=== PATIENT | female | born 1980 | race Caucasian/White ===

== ENCOUNTER 2020-09-29 10:18 | Outpatient (CLI) | payer BC, SELFPAY ==
--- NOTE | ~2020-09-29 | MM_ITS ---
EXAMINATION: MM screening [facility] BI w kalen HISTORY: Screening mammogram TECHNIQUE: Craniocaudal and mediolateral oblique 3-D tomosynthesis images were obtained and synthetic 2-D images were generated. CAD analysis was submitted and interpreted. COMPARISON: 09/28/2019, 09/21/2018, 09/19/2017 BREAST PARENCHYMAL COMPOSITION: The breasts are almost entirely fatty. FINDINGS: A stable intramammary lymph node is noted in the right breast. There is no evidence of susp icious mass, calcification, or architectural distortion to suggest malignancy in either breast. There has been no suspicious interval change. IMPRESSION: 1. No mammographic evidence of malignancy. 2. Recommend routine screening mammography in one year. BI-RADS Category 2: Benign finding(s). Reviewed, dictated and finalized at location A. NO BANKER
== END 2020-09-29 10:19 | disposition home or self-care (01) ==
LOC: ANHIMG 10:25
DX: Z12.31 Encounter for screening mammogram for malignant neoplasm of breast (principal)
CPT/HCPCS: 77063; 77067

== ENCOUNTER 2021-03-29 08:27 | Observation (INO) | payer BC, SELFPAY ==
--- NOTE | ~2021-03-29 | CT_ITS ---
EXAMINATION: CT abdomen pelvis w con DATE: 03/29/2021 10:43 INDICATION: Abdominal pain TECHNIQUE: Computed tomography (CT) of the abdomen and pelvis was performed with 100 cc Omnipaque 350 intravenous contrast. Automated exposure control and iterative reconstruction technique were employe d. Exam dose: 1053.70 mGy-cm total exam DLP. COMPARISON: 03/29/2021 Limited abdominal ultrasound examination; cholelithiasis and positive sonograph ic Villalobos's sign were noted FINDINGS: 4 mm middle lobe nodule (series 4 image 4). The lung bases are clear of infiltrate or consolidation. Normal heart size. No pericardial or pleural effusion. The liver, spleen, pancreas, left adrenal gland and kidneys are unremarkable. No urinary tract calcul us or hydroureteronephrosis. Approximately 19 x 24 mm low-attenuation right adrenal mass, likely an adrenal adenoma. The urinary bladder, uterus and adnexal areas are unremarkable. Normal caliber of the abdominal aorta. No intraperitoneal or retroperitoneal or pelvic mass lesion or adenopathy. There is minimal free fluid in the dependent pelvis. This likely physiologic. Minimal diverticulosis of the sigmoid colon; no CT evidence of diverticulitis. No bowel obstruction, bowel wall thickening, pneumatosis or intraperitoneal free air. No CT evidence of appendicitis is evident. Included skeletal structures are unremarkable. IMPRESSION: 19 x 24 mm probable right adrenal adenoma Minimal left colon diverticulosis; no CT evidence of diverticulitis Reviewed, dictated and finalized at Location [facility]. Reviewed, dictated and finalized at location A.
--- NOTE | ~2021-03-29 | US_ITS ---
US abdomen limited DATE: 03/29/2021 10:05 INDICATION: Right upper quadrant abdominal pain. Nausea and vomiting. TECHNIQUE: Real-time imaging of liver, pancreas, gallbladder COMPARISON: None FINDINGS: The pancreatic head, neck and proximal body are unremarkable. The distal body and tail are obscured by bowel gas. No hepatic space-occupying mass lesion is evident. There is fatty change of the liver. Normal hepatop edal portal venous flow direction. There are multiple shadowing small filling defects of the dependent aspect of the gallbladder consist ent with cholelithiasis. No gallbladder wall thickening. Positive sonographic Villalobos's sign. The common bile but measures 5.3 mm, within normal limits. IMPRESSION: Cholelithiasis Positive sonographic Villalobos's sign Reviewed, dictated and finalized at [facility]. Reviewed, dictated and finalized at location A.
[2021-03-29 08:29] VITALS: BP 130/63; PULSE 73; RESP 20; TEMP 36.9; O2SAT 100
--- NOTE | 2021-03-29 08:41 | ED.ABDPAIN ---
HPI - Abdominal Pain General Chief Complaint: Abdominal Pain Stated Complaint: ABD PAIN Time Seen by Provider: 03/29/21 08:30 Source: RN notes reviewed History of Present Illness HPI narrative: Patient presents to emergency department from home for abdominal pain. Patient states symptoms began approximately 2 AM this morning. Pain is located diffusely throughout the abdomen with increased pain in the right upper quadrant described as sharp and stabbing. States nothing makes the pain better or worse. Associated with nausea vomiting. Denies any fevers or chills, chest pain, shortness of breath diarrhea or any other symptoms. Tried taking Pepto-Bismol at home with no relief Related Data Allergies Allergy/AdvReac Type Severity Reaction Status Date / Time METOCLOPRAMIDE HCL Allergy Mild Swelling Uncoded 03/29/21 08:38 of Lip/Tongue/Throat PROCHLORPERAZINE EDISYLATE Allergy Mild Swelling Uncoded 03/29/21 08:38 of the Eye PROCHLORPERAZINE MALEATE Allergy Mild Swelling Uncoded 03/29/21 08:38 of Lip/Tongue/Throat PROMETHAZINE HCL Allergy Mild Swelling Uncoded 03/29/21 08:38 of the Eye Review of Systems Review of Systems: Narrative: Gen.: Denies fevers or chills ENT: Denies congestion Respiratory: Denies shortness of breath or cough CV: Denies chest pain or palpitations GI: See HPI denies burning, urgency, frequency or hematuria Musculoskeletal: Denies back pain or muscle pain Neuro: Denies numbness, tingling, weakness or focal weakness Skin: Denies rash Except as documented, all other systems reviewed and negative [facility] Past Medical History Medical History (Updated 03/29/21 @ 12:02 by Lorne Couch DO) Diverticulitis Social History Social History (Updated 03/29/21 @ 08:43 by Lorne Couch DO) Smoking status: Never smoker Gender identity (if verbalized by the patient): Female Exam Narrative: Exam Narrative: APPEARANCE: No acute distress, nontoxic, resting in bed HEENT: Normocephalic, atraumatic, OMM RESPIRATORY: No respiratory distress, clear to auscultation bilaterally with no rhonchi wheezing or rales CARDIOVASCULAR: RRR s murmur ABDOMINAL: Soft nondistended tender palpation diffusely throughout abdomen with increased tenderness in the right upper quadrant no rebound or guarding MUSCULOSKELETAl: Moves all extremities. No clubbing, cyanosis or edema. NEURO: Awake and alert. Following commands, speech normal, no focal deficits SKIN:: Warm, dry. Normal Color PSYCHIATRIC: Normal affect/mood Course Course Emergency Course: : Discussed with Dr. Barr presentation work-up discussed continued abdominal pain agrees with admission to his service at this time. Request patient started on cefotetan 2 g every 12 hours Discussed with patient and family results of workup and diagnosis. Discussed need for admission. Patient and family understand and agree to current treatment plan Vital Signs Vital signs: Vital Signs Temperature 98.5 F 03/29/21 08:29 Pulse Rate 73 03/29/21 08:29 Respiratory Rate 20 03/29/21 08:29 Blood Pressure 130/63 03/29/21 08:29 Pulse Oximetry 100 03/29/21 08:29 Temperature 98.5 F 03/29/21 08:29 Pulse Rate 73 03/29/21 08:29 Respiratory Rate 20 03/29/21 08:29 Blood Pressure 130/63 03/29/21 08:29 Pulse Oximetry 100 03/29/21 08:29 MDM - Abdominal Pain Lab Data Result diagrams: 03/29/21 08:49 03/29/21 08:49 Labs: Lab Results 03/29/21 03/29/21 03/29/21 Range/Units 08:49 08:49 08:49 WBC 8.0 (4.5-10.0) K/mm3 RBC 4.33 (4.2-5.4) M/mm3 Hgb 12.4 (12.0-15.0) g/dL Hct 38.6 (37.0-47.0) % MCV 89.1 (80-100) fl MCH 28.6 (26-34) pg MCHC 32.1 (32-36) g/dl RDW 13.9 (11.5-14.5) % Plt Count 309 (150-375) k/mm3 MPV 9.5 (7.4-10.4) fl Immature Gran % (Auto) 0.4 (0-0.5) % Neut % (Auto) 74.3 H (45.5-73.1) % Lymph % (Auto) 18.3 (18.3-44.2
[2021-03-29] MEDS: SODIUM CHLORIDE 0.9% IV 1,000 ML 999 ML IV CONT (08:49)
[2021-03-29] MEDS: KETOROLAC 30 MG/ML VIAL (*BKC) IV PUSH (08:49)
[2021-03-29] MEDS: ONDANSETRON INJ 4 MG/2 ML VIAL IV PUSH (08:51)
[2021-03-29 09:01] LABS: Basophils Percent Auto 0.4 % (0.2-1.2); Eosinophils Absolute Auto 0.1 K/mm3 (0-0.3); Eosinophils Percent Auto 0.6 % (0-4.4); Hematocrit 38.6 % (37.0-47.0); Hemoglobin 12.4 g/dL (12.0-15.0); Immature Granulocyte Absolute 0.03 K/mm3 (0.00-0.031); Immature Granulocyte Percent A 0.4 % (0-0.5); Lymphocytes Absolute Auto 1.46 K/mm3 (0.9-3.2); Lymphocytes Percent Auto 18.3 % (18.3-44.2); Mean Corpuscular HGB Conc 32.1 g/dl (32-36); Mean Corpuscular Hemoglobin 28.6 pg (26-34); Mean Corpuscular Volume 89.1 fl (80-100); Mean Platelet Volume 9.5 fl (7.4-10.4); Monocytes Absolute Auto 0.5 K/mm3 (0.1-0.6); Neutrophils Absolute Auto 5.9 K/mm3 (1.3-6.7); Neutrophils Percent Auto 74.3 % (45.5-73.1); Platelet Count Result 309 k/mm3 (150-375); Red Blood Count 4.33 M/mm3 (4.2-5.4); Red Cell Distribution Width 13.9 % (11.5-14.5)
[2021-03-29 09:10] LABS: Add Urine Microscopic? YES; Amorphous Sediment Urine Few; Appearance Urine Cloudy (Clear); Bacteria Urine Trace /hpf; Bilirubin Urine Negative (Negative); Blood Urine Negative (Negative); Color Urine Yellow (Yellow); Glucose Urine UA Negative (Negative); Ketones Urine Negative (Negative); Leukocyte Esterase Ur Negative LEU/UL (Negative); Mucus Urine Rare /lpf; Nitrate Urine Negative (Negative); Protein Urine 2+ mg/dL (Negative); RBC Urine 0-2 /hpf (0-2); Specific Grav Ur 1.023 (1.001-1.035); Squamous Epithelial Cell Urine Occasional /hpf (Few); Urobilinogen Urine Negative mg/dL (<2.0); WBC Urine 0-3 /hpf
[2021-03-29 09:11] LABS: Alanine Aminotransferase 27 U/L (4-35); Albumin Level 4.6 g/dL (3.5-5.1); Alkaline Phosphatase 79 U/L (38-126); Anion Gap 4 mmol/L (8-16); Aspartate Amino Transferase 34 U/L (14-36); Bilirubin,Total 0.2 mg/dL (0.2-1.3); Blood Urea Nitrogen 15 mg/dL (7-17); Carbon Dioxide 29 mmol/L (22-30); Chloride 105 mmol/L (98-107); Estimated CRCL calculation 102 ml/min; Estimated Glomerular Filt Rate > 60; Glucose 110 mg/dL (65-105); Lipase 84 U/L (23-300); Potassium 4.5 mmol/L (3.4-5.0); Sodium 138 mmol/L (137-145)
[2021-03-29 10:25] VITALS: BP 136/87; PULSE 69; RESP 19; O2SAT 100
[2021-03-29] MEDS: MORPHINE SULFATE (*CRX) 4 MG/ML INJ IV PUSH (10:26)
[2021-03-29 12:00] VITALS: BP 126/78; PULSE 75; RESP 18; O2SAT 100
[2021-03-29] MEDS: cefoTEtan DISODIUM INJ 2 GM in DEXTROSE 5% IN WATER 50 ML IVPB ×2 (12:15→19:38)
--- NOTE | 2021-03-29 12:27 | PC.NURSE ---
Dextrose was pulled in error. Dextrose was not given to pt.
--- NOTE | 2021-03-29 14:25 | ADMGEN ---
This patient, Saida Justin, was admitted to Medical Room 261-01. Patient/family oriented to hospital policies and general routines including ID bracelet, bed and alarms, visiting hours, pain management, procedures, bathroom and other care routines, personal items, smoking policy, room service/diet, and visiting hours. Information on how to activate the Rapid Response Team has been discussed. Patient/Family are encouraged to report perceived risks to care and to ask questions if they do not understand what they are told or what they should do.
[2021-03-29] MEDS: SODIUM CHLORIDE 0.9% IV 1,000 ML 125 ML IV CONT ×2 (14:28→22:08)
[2021-03-29 14:40] VITALS: BP 119/63; PULSE 75; RESP 16; TEMP 36.7; O2SAT 100
[2021-03-29] MEDS: ACETAMINOPHEN 325 MG TABLET 650 MG PO (14:51)
[2021-03-29 14:58] VITALS: BMI 32.2
--- NOTE | 2021-03-29 17:16 | PM.IMHP ---
H&P: HPI History of Present Illness Date/Time: 03/29/21 17:16 this is a pleasant 40-year-old white female patient who presented to the emergency department from home for abdominal pain. Patient states symptoms began approximately 2 AM this morning. Pain is located diffusely throughout the abdomen with increased pain in the right upper quadrant described as sharp and stabbing. patient states that she was feeling okay S her day in the morning afternoon but had a little queasiness in her stomach. She then had cheeseburger and some noodles for supper went to bed feeling all right but awoke at 2:00 a.m. with sharp upper abdominal pain above the level of the umbilicus. She did get any better so came to the emergency room at 8:00 a.m. this morning. States nothing makes the pain better or worse. Associated with nausea vomiting. Denies any fevers or chills, chest pain, shortness of breath diarrhea or any other symptoms. Tried taking Pepto-Bismol at home with no relief. Took some Tylenol yesterday with mild relief. Workup in the emergency room by Dr. chang revealed an ultrasound that showed small filling defects consistent with gallstones in the gallbladder and a definite Villalobos sign on ultrasound. CT scan was checked to be sure there was not something else in the biliary ducts looked normal. Her lipase is normal there was no obvious problem with the pancreas on CT scan and therefore is felt that she most likely has acute cholecystitis related to gallstones. She is admitted this time for IV antibiotics IV fluid hydration. Will discuss possible laparoscopic cholecystectomy for her in the near future since she has within the 72 hour window at which time it is likely that we would be successful to accomplish this for her. Chief Complaint: Acute upper abdominal pain Review of Systems Constitutional: Constitutional: Reports as per HPI and Denies headache(s) Eyes: Eyes: Denies loss of vision and Denies eye pain ENT: Reports Normal hearing present, Denies change in voice, Denies dizziness and Denies headache(s) Cardiovascular: Cardiovascular: Denies chest pain and Denies dyspnea Respiratory: Respiratory: Denies dyspnea and Denies wheezing Gastrointestinal: Gastrointestinal: Reports abdominal pain ( Many upper abdomen and more to the right than left.), Reports GI cramping and Reports early satiety Comments: patient lytes 2 previous episodes of the pain lasted about 12 hours. She can't remember what she had to eat before though started. Genitourinary: Genitourinary: Reports no additional female genitourinary complaints Comments: Patient did have about 9 years ago. She did have a Pfannenstiel type incision and has had no recent problems gynecologically. Musculoskeletal: Musculoskeletal: Denies back pain and Denies arthralgias Neurologic: Reports Normal hearing present, Denies dizziness, Denies headache(s), Denies loss of vision and Denies memory loss Psychiatric: Psychiatric: Denies memory loss and Denies panic attacks Endocrine: Endocrine: Reports no additional endocrine complaints Hematologic/Lymphatic: Hematologic/Lymphatic: Reports no additional hematologic/lymphatic complaints Allergic/Immunologic: Allergic/Immunologic: Denies wheezing PMFSH Past Medical History Medical History (Updated 03/29/21 @ 17:29 by Yordan Barr MD) Diverticulitis Diverticulosis large intestine w/o perforation or abscess w/o bleeding Obesity (BMI 30.0-34.9) Surgical History Surgical History (Updated 03/29/21 @ 17:21 by Yordan Barr MD) History of Social History Social History Smoking status: Never smoker Alcohol intake: current Drinks per week: 3 Substance use: never Gender identity (if verbalized by the patient): Female Spiritual care concerns: No Meds Home Medications and Allergies Home Medications Medication Instructions Recorded
--- NOTE | 2021-03-29 17:46 | WPDANESEPP ---
Anes - Eval Pre Procedure Procedure: Laparoscopic Cholecystectomy w/ IOC Date/Time: 03/30/21 14:30 Surgeon: Momo Preop Diagnosis: Acute Cholecystitis Pre Op Diagnosis: Cholecystitis Patient Data Age: 40 Gender: F Height: 1.78 m Weight: 102 kg Last Vital Signs Temp 36.7 C 03/29/21 14:40 Pulse 75 03/29/21 14:40 Resp 16 03/29/21 14:40 BP 119/63 03/29/21 14:40 Pulse Ox 100 03/29/21 14:40 Allergies Allergy/AdvReac Type Severity Reaction Status Date / Time METOCLOPRAMIDE HCL Allergy Mild Swelling Uncoded 03/29/21 14:35 of Lip/Tongue/Throat PROCHLORPERAZINE EDISYLATE Allergy Mild Swelling Uncoded 03/29/21 14:35 of Lip/Tongue/Throat PROCHLORPERAZINE MALEATE Allergy Mild Swelling Uncoded 03/29/21 14:35 of Lip/Tongue/Throat PROMETHAZINE HCL Allergy Mild Swelling Uncoded 03/29/21 14:35 of Lip/Tongue/Throat Home Medications Medication Instructions Recorded Confirmed Type bupropion HCl 150 mg PO DAILY 03/29/21 03/29/21 History ergocalciferol (vitamin D2) 250 mcg PO DAILY 03/29/21 03/29/21 History levothyroxine 175 mcg PO DAILY 03/29/21 03/29/21 History lorazepam 1 mg PO HS PRN 03/29/21 03/29/21 History omeprazole 40 mg PO DAILY 03/29/21 03/29/21 History phentermine 30 mg PO DAILY 03/29/21 03/29/21 History sertraline 100 mg PO DAILY 03/29/21 03/29/21 History vitamin B complex [B 1 tablet PO DAILY 03/29/21 03/29/21 History Complex-Vitamin B12] zolpidem 5 mg PO HS PRN 03/29/21 03/29/21 History Laboratory Tests 03/29/21 03/29/21 03/29/21 08:49 08:49 08:49 WBC 8.0 K/mm3 K/mm3 (4.5-10.0) RBC 4.33 M/mm3 M/mm3 (4.2-5.4) Hgb 12.4 g/dL g/dL (12.0-15.0) Hct 38.6 % % (37.0-47.0) MCV 89.1 fl fl (80-100) MCH 28.6 pg pg (26-34) MCHC 32.1 g/dl g/dl (32-36) RDW 13.9 % % (11.5-14.5) Plt Count 309 k/mm3 k/mm3 (150-375) MPV 9.5 fl fl (7.4-10.4) Immature Gran % (Auto) 0.4 % % (0-0.5) Neut % (Auto) 74.3 % H % (45.5-73.1) Lymph % (Auto) 18.3 % % (18.3-44.2) [place] % (Auto) 6.0 % % (2.6-8.5) Eos % (Auto) 0.6 % % (0-4.4) Baso % (Auto) 0.4 % % (0.2-1.2) Lymph # (Auto) 1.46 K/mm3 K/mm3 (0.9-3.2) [place] # (Auto) 0.5 K/mm3 K/mm3 (0.1-0.6) Eos # (Auto) 0.1 K/mm3 K/mm3 (0-0.3) Baso # (Auto) 0.0 K/mm3 K/mm3 (0.0-0.1) Abs Immat Gran (auto) 0.03 K/mm3 K/mm3 (0.00-0.031) Absolute Neuts (auto) 5.9 K/mm3 K/mm3 (1.3-6.7) Absolute Nucleated RBC 0.0 K/mm3 K/mm3 (0.0-0.012) Nucleated RBC % 0.0 % % (0.0-0.2) Sodium 138 mmol/L mmol/L (137-145) Potassium 4.5 mmol/L mmol/L (3.4-5.0) Chloride 105 mmol/L mmol/L (98-107) Carbon Dioxide 29 mmol/L mmol/L (22-30) Anion Gap 4 mmol/L L mmol/L (8-16) BUN 15 mg/dL mg/dL (7-17) Creatinine 0.80 mg/dL mg/dL (0.7-1.0) Estim Creat Clear Calc 102 ml/min ml/min Estimated GFR > 60 (59 - ) Glucose 110 mg/dL H mg/dL (65-105) Calcium 10.0 mg/dL mg/dL (8.4-10.2) Total Bilirubin 0.2 mg/dL mg/dL (0.2-1.3) AST 34 U/L U/L (14-36) ALT 27 U/L U/L (4-35) Alkaline Phosphatase 79 U/L U/L (38-126) Total Protein 8.0 g/dL g/dL (6.3-8.2) Albumin 4.6 g/dL g/dL (3.5-5.1) Lipase 84 U/L U/L (23-300) Urine Color Yellow (Yellow) Urine Appearance Cloudy H (Clear) Urine pH 8.0 (5.0-9.0) Ur Specific [place] 1.023 (1.001-1.035) Urine Protein 2+ mg/dL H mg/dL (Negative) Urine Glucose (UA) Negative mg/dL mg/dL (Negative) Urine Ketones Negative mg/dL mg/dL (Negative) Ur Blood (Man) Negative (Negative) U
[2021-03-29] MEDS: FAMOTIDINE 20 MG/2 ML VIAL IV PUSH (19:37)
[2021-03-29] MEDS: HYDROcodone/acetaminophen (*CRX) 5-325 MG TABLET 1 TAB PO (19:37)
[2021-03-29 20:00] VITALS: PULSE 75; RESP 16; O2SAT 100
[2021-03-29 21:00] VITALS: BP 112/68; PULSE 67; RESP 16; TEMP 36; O2SAT 98
[2021-03-30] VITALS (19 sets, daily range): BP systolic 112–137; BP diastolic 54–80; PULSE 71–87; RESP 14–20; TEMP 35.9–36.9; O2SAT 96–100
[2021-03-30 05:48] LABS: Basophils Percent Auto 0.4 % (0.2-1.2); Eosinophils Absolute Auto 0.1 K/mm3 (0-0.3); Eosinophils Percent Auto 2.5 % (0-4.4); Hematocrit 33.2 % (37.0-47.0); Hemoglobin 10.5 g/dL (12.0-15.0); Immature Granulocyte Absolute 0.02 K/mm3 (0.00-0.031); Immature Granulocyte Percent A 0.4 % (0-0.5); Lymphocytes Percent Auto 29.4 % (18.3-44.2); Mean Corpuscular HGB Conc 31.6 g/dl (32-36); Mean Corpuscular Volume 88.5 fl (80-100); Mean Platelet Volume 9.6 fl (7.4-10.4); Monocytes Absolute Auto 0.4 K/mm3 (0.1-0.6); Monocytes Percent Auto 8.6 % (2.6-8.5); Neutrophils Absolute Auto 2.8 K/mm3 (1.3-6.7); Neutrophils Percent Auto 58.7 % (45.5-73.1); Platelet Count Result 226 k/mm3 (150-375); Red Blood Count 3.75 M/mm3 (4.2-5.4); Red Cell Distribution Width 13.9 % (11.5-14.5); White Blood Count 4.8 K/mm3 (4.5-10.0)
[2021-03-30] MEDS: SODIUM CHLORIDE 0.9% IV 1,000 ML 125 ML IV CONT (06:11)
[2021-03-30] MEDS: HYDROcodone/acetaminophen (*CRX) 5-325 MG TABLET 1 TAB PO (06:12)
[2021-03-30 06:23] LABS: Alanine Aminotransferase 198 U/L (4-35); Albumin Level 3.6 g/dL (3.5-5.1); Alkaline Phosphatase 78 U/L (38-126); Anion Gap 4 mmol/L (8-16); Aspartate Amino Transferase 124 U/L (14-36); Bilirubin,Total 0.2 mg/dL (0.2-1.3); Blood Urea Nitrogen 9 mg/dL (7-17); Calcium 8.4 mg/dL (8.4-10.2); Carbon Dioxide 28 mmol/L (22-30); Chloride 107 mmol/L (98-107); Estimated CRCL calculation 92 ml/min; Estimated Glomerular Filt Rate > 60; Glucose 88 mg/dL (65-105); Lipase 90 U/L (23-300); Magnesium 1.9 mg/dL (1.6-2.3); Potassium 3.8 mmol/L (3.4-5.0); Sodium 139 mmol/L (137-145)
--- NOTE | 2021-03-30 08:44 | WPDHPUPDATE1 ---
History and Physical Update Update Date/Time: 03/30/21 08:44 History and Physical has been reviewed, including an updated exam of the patient. There are NO changes in the patient's condition.Patient is still having right upper quadrant pain continuously. Risks, benefits, and alternatives have been discussed and questions answered. Patient agrees to proceed with procedure.
[2021-03-30] MEDS: cefoTEtan DISODIUM INJ 2 GM in DEXTROSE 5% IN WATER 50 ML IVPB ×2 (08:49→20:49)
[2021-03-30] MEDS: ENOXAPARIN 40 MG/0.4 ML SYRINGE SUB-Q (08:49)
[2021-03-30] MEDS: buPROPion HCL XL (24 HR) 150 MG TABCR PO (08:49)
[2021-03-30] MEDS: FAMOTIDINE 20 MG/2 ML VIAL IV PUSH (08:49)
[2021-03-30] MEDS: CHLORHEXIDINE GLUCONATE 4% SOL 120 ML BTL 1 APPLIC TOPICAL (08:50)
--- NOTE | 2021-03-30 12:27 | WPDANESEPPF ---
Anes - Initial Pre Proc Eval Procedure: Operation Date: 03/30/21 15:00 Proposed Procedures p Laparoscopic Cholecystectomy With Intraoperative Cholangiograms - Yordan Barr MD Date/Time: 03/30/21 12:27 Surgeon: Yordan Barr MD Pre Op Diagnosis: Cholecystitis Patient Data Age: 40 Gender: F Height: 1.78 m Weight: 102 kg Last Vital Signs Temp 36.2 C L 03/30/21 05:00 Pulse 80 03/30/21 05:00 Resp 16 03/30/21 05:00 BP 112/54 L 03/30/21 05:00 Pulse Ox 97 03/30/21 05:00 Allergies Allergy/AdvReac Type Severity Reaction Status Date / Time METOCLOPRAMIDE HCL Allergy Severe Swelling Uncoded 03/30/21 11:56 of Lip/Tongue/Throat PROCHLORPERAZINE EDISYLATE Allergy Severe Swelling Uncoded 03/30/21 11:56 of Lip/Tongue/Throat PROMETHAZINE HCL Allergy Severe Swelling Uncoded 03/30/21 11:56 of Lip/Tongue/Throat Home Medications Medication Instructions Recorded Confirmed Type bupropion HCl 150 mg PO DAILY 03/29/21 03/29/21 History ergocalciferol (vitamin D2) 250 mcg PO DAILY 03/29/21 03/29/21 History levothyroxine 175 mcg PO DAILY 03/29/21 03/29/21 History lorazepam 1 mg PO HS PRN 03/29/21 03/29/21 History omeprazole 40 mg PO DAILY 03/29/21 03/29/21 History phentermine 30 mg PO DAILY 03/29/21 03/29/21 History sertraline 100 mg PO DAILY 03/29/21 03/29/21 History vitamin B complex [B 1 tablet PO DAILY 03/29/21 03/29/21 History Complex-Vitamin B12] zolpidem 5 mg PO HS PRN 03/29/21 03/29/21 History Laboratory Tests 03/29/21 03/30/21 03/30/21 19:48 05:12 05:12 WBC 4.8 K/mm3 K/mm3 (4.5-10.0) RBC 3.75 M/mm3 L M/mm3 (4.2-5.4) Hgb 10.5 g/dL L g/dL (12.0-15.0) Hct 33.2 % L % (37.0-47.0) MCV 88.5 fl fl (80-100) MCH 28.0 pg pg (26-34) MCHC 31.6 g/dl L g/dl (32-36) RDW 13.9 % % (11.5-14.5) Plt Count 226 k/mm3 k/mm3 (150-375) MPV 9.6 fl fl (7.4-10.4) Immature Gran % (Auto) 0.4 % % (0-0.5) Neut % (Auto) 58.7 % % (45.5-73.1) Lymph % (Auto) 29.4 % % (18.3-44.2) [place] % (Auto) 8.6 % H % (2.6-8.5) Eos % (Auto) 2.5 % % (0-4.4) Baso % (Auto) 0.4 % % (0.2-1.2) Lymph # (Auto) 1.40 K/mm3 K/mm3 (0.9-3.2) [place] # (Auto) 0.4 K/mm3 K/mm3 (0.1-0.6) Eos # (Auto) 0.1 K/mm3 K/mm3 (0-0.3) Baso # (Auto) 0.0 K/mm3 K/mm3 (0.0-0.1) Abs Immat Gran (auto) 0.02 K/mm3 K/mm3 (0.00-0.031) Absolute Neuts (auto) 2.8 K/mm3 K/mm3 (1.3-6.7) Absolute Nucleated RBC 0.0 K/mm3 K/mm3 (0.0-0.012) Nucleated RBC % 0.0 % % (0.0-0.2) Sodium 139 mmol/L mmol/L (137-145) Potassium 3.8 mmol/L mmol/L (3.4-5.0) Chloride 107 mmol/L mmol/L (98-107) Carbon Dioxide 28 mmol/L mmol/L (22-30) Anion Gap 4 mmol/L L mmol/L (8-16) BUN 9 mg/dL D mg/dL (7-17) Creatinine 0.90 mg/dL mg/dL (0.7-1.0) Estim Creat Clear Calc 92 ml/min ml/min Estimated GFR > 60 (59 - ) Glucose 88 mg/dL mg/dL (65-105) Calcium 8.4 mg/dL mg/dL (8.4-10.2) Magnesium 1.9 mg/dL mg/dL (1.6-2.3) Total Bilirubin 0.2 mg/dL mg/dL (0.2-1.3) AST 124 U/L H U/L (14-36) ALT 198 U/L H U/L (4-35) Alkaline Phosphatase 78 U/L U/L (38-126) Total Protein 6.0 g/dL L g/dL (6.3-8.2) Albumin 3.6 g/dL g/dL (3.5-5.1) Lipase 90 U/L U/L (23-300) Blood Type A Positive Antibody Screen Negative Patient hx anesthesia problems: none Family hx anesthesia problems: none [facility] Past Medical History Medical History (Updated 03/30/21 @ 12:30 by Frantz Addison DO) Anxiety Depression Diverticulitis Diverticulosis large intestine w/o perforation or absc
--- NOTE | 2021-03-30 13:40 | PC.NURSE ---
Patient to surgery. IV saline locked.
[2021-03-30] MEDS: LACTATED RINGERS 1,000 ML 30 ML IV CONT ×2 (14:01→16:51)
[2021-03-30] MEDS: ACETAMINOPHEN 500 MG TABLET 1000 MG PO (14:03)
[2021-03-30] MEDS: KETOROLAC 15 MG/ML VIAL (*BKC) IV PUSH (14:03)
[2021-03-30] MEDS: SCOPOLAMINE 1.5 MG PATCH TRANSDERM (14:14)
[2021-03-30] MEDS: ceFAZolin SODIUM 1 GM VIAL IV PUSH (14:59)
[2021-03-30] MEDS: BUPIVACAINE/EPINEPHRINE 0.5% 30 ML VIAL INFILTRATE (15:50)
--- NOTE | 2021-03-30 16:55 | P.OP_ITS ---
Procedure Note - Detailed Date of procedure: 03/30/21 Pre-op diagnosis: Cholecystitis Acute Cholecystitis with Cholelithiasis Post-op diagnosis: same Procedure performed: Laparoscopic Cholecystectomy Description of procedure: Patient was seen preoperatively in the holding area and risks, benefits and alternatives confirmed. Patient was taken to the operating room and general anesthesia was induced. A time out was then preformed with the surgery team confirming patient and site of surgery. The abdomen was prepped and draped in the usual sterile fashion. Incision was made just below the umbilicus with an 11 blade knife. I placed 2 stay sutures of O- Vicryl on either side of the mid- line fascia beneath the umbilicus and was then able to slide in the [place] cannula through the fascial defect into the peritoneum. First under low flow and then under high flow the abdomen was insufflated with carbon dioxide never exceeding a pressure of 14. Three 5 mm trocars were then introduced under direct vision. The following trocars were introduced under direct vision: a 5 mm in the epigastrium and two 5 mm trocars along the right costal margin laterally in the subcostal area. There was significant omental adhesions to the underside and lower 1/3 of the gallbladder. These were taken down with blunt and sharp dissection using some Bovie cautery for hemostasis. We were able to dissect this completely away from the neck of the gallbladder. I then carefully used the L-shaped cautery and the [place] dissector to dissect out the triangle of [place]. I then was able to dissect out both the cystic duct and cystic artery and identify a window of safety. The gall bladder was grasped and the cystic duct and artery were dissected free and clipped with an 5 mm endo-clip glue spreading machine operator. The cystic duct and artery were clipped with use of 2 clips on the patient's side 1 on the gallbladder side utilizing a 5 mm endoclip-glue spreading machine operator. One clip crossed over on the cystic artery so there are actually 3 on the remaining stump of the cystic artery. The cystic duct was then transected. The cystic artery was also transected at this point. The gall bladder was removed using electrocautery and then removed from the abdomen using an endobag. The trocars were removed visualizing hemostasis and the remaining gas evacuated. The large trocar site at the umbilicus was closed with use of the 2 stay sutures of 0 Vicryl mentioned above and also a figure of 8 O-Vicryl suture. The 2 stay sutures mentioned above on either side of the fascia were also tied together to help approximate this midline fascia. Further local anesthetic was placed into each incision for postop pain control. The skin incisions were closed with subcuticular suture of 4-0 Monocryl. Surgical glue then was applied to all the incisions. Patient tolerated the procedure well was taken to the recovery room in good condition. Anesthesia: GETA Surgeon: Yordan Barr MD Plate Glass Grinder: Britni DESHPANDE, OR rn first assist Estimated blood loss (mL): 25 IV fluids (mL): 1,300 Drains: No Packing: No Pathology: yes (Gallbladder 2. Fluid from the gallbladder for Gram stain and C&S.) Complications: No immediate complications Condition: stable Disposition: PACU Findings: Patient is here to have acute cholecystitis with a distended gallbladder and omentum densely adherent to the lower 3rd of the gallbladder.
[2021-03-30] MEDS: fentaNYL CITRATE INJ (*CRX) 100 MCG/2 ML VIAL 25 MCG IV PUSH ×6 (17:04→17:43)
[2021-03-30] MEDS: ONDANSETRON INJ 4 MG/2 ML VIAL IV PUSH (17:29)
--- NOTE | 2021-03-30 17:55 | SUR.PHASEI ---
1755- Call to Fahad Jaramillo CRNA patient requesting additional medication for nausea at this time. 4MG Zofran IVP administered at 1729 with no relief and patient currently has scopolamine patch intact behind left ear. Obtained orders for 12.5MG Benadryl IVP once.
[2021-03-30] MEDS: diphenhydrAMINE HCl INJ 50 MG/ML VIAL 12.5 MG IV PUSH (17:56)
--- NOTE | 2021-03-30 18:00 | PC.NURSE ---
Laboratory called me to tell me that the gram stain and culture results showed no white blood cells or organisms seen. The provider was not called.
--- NOTE | 2021-03-30 18:11 | SUR.PHASEI ---
1810- Notified Dr. Flores patient remains nauseated at this time and requesting additional orders for medication. Orders obtained for 25MG benadryl IVP once.
[2021-03-30] MEDS: diphenhydrAMINE HCl INJ 50 MG/ML VIAL 25 MG IV PUSH (18:13)
--- NOTE | 2021-03-30 18:35 | PC.NURSE ---
Patient returned from surgery. Report received from JERAMY Vuong.
[2021-03-30] MEDS: LACTATED RINGERS 1,000 ML 100 ML IV CONT ×2 (19:47→20:00)
[2021-03-30] MEDS: SENNA/DOCUSATE SODIUM TABLET 2 TAB PO (20:50)
[2021-03-30] MEDS: HYDROcodone/acetaminophen (*CRX) 7.5-325 MG TABLET 1 TAB PO (20:53)
[2021-03-31 00:18] VITALS: BP 117/59; PULSE 66; RESP 20; TEMP 36.2; O2SAT 99
[2021-03-31 04:18] VITALS: BP 120/64; PULSE 59; RESP 21; TEMP 36.1; O2SAT 100
[2021-03-31] MEDS: HYDROcodone/acetaminophen (*CRX) 7.5-325 MG TABLET 1 TAB PO ×3 (05:29→14:48)
[2021-03-31 06:18] LABS: Hematocrit 33.3 % (37.0-47.0); Hemoglobin 10.6 g/dL (12.0-15.0); Mean Corpuscular HGB Conc 31.8 g/dl (32-36); Mean Corpuscular Hemoglobin 28.3 pg (26-34); Mean Corpuscular Volume 88.8 fl (80-100); Mean Platelet Volume 9.7 fl (7.4-10.4); Platelet Count Result 247 k/mm3 (150-375); Red Blood Count 3.75 M/mm3 (4.2-5.4); Red Cell Distribution Width 13.7 % (11.5-14.5); White Blood Count 8.5 K/mm3 (4.5-10.0)
[2021-03-31 06:38] LABS: Alanine Aminotransferase 161 U/L (4-35); Albumin Level 3.5 g/dL (3.5-5.1); Alkaline Phosphatase 79 U/L (38-126); Anion Gap 4 mmol/L (8-16); Aspartate Amino Transferase 88 U/L (14-36); Bilirubin,Total < 0.1 mg/dL (0.2-1.3); Blood Urea Nitrogen 6 mg/dL (7-17); Calcium 8.5 mg/dL (8.4-10.2); Carbon Dioxide 28 mmol/L (22-30); Chloride 105 mmol/L (98-107); Estimated CRCL calculation 103 ml/min; Estimated Glomerular Filt Rate > 60; Glucose 83 mg/dL (65-105); Potassium 4.4 mmol/L (3.4-5.0); Sodium 137 mmol/L (137-145)
[2021-03-31 08:18] VITALS: BP 105/54; PULSE 74; RESP 16; TEMP 36.1; O2SAT 99
[2021-03-31] MEDS: buPROPion HCL XL (24 HR) 150 MG TABCR PO (08:33)
[2021-03-31] MEDS: cefoTEtan DISODIUM INJ 2 GM in DEXTROSE 5% IN WATER 50 ML IVPB (08:33)
[2021-03-31] MEDS: MORPHINE SULFATE (*CRX) 2 MG/ML INJ IV PUSH (08:35)
--- NOTE | 2021-03-31 08:53 | WPDANESPN ---
Anes - Prog Note Post-Op Date/Time: 03/31/21 08:53 Cardiovascular status: normal Respiratory status: normal Airway patency: baseline Mental status: baseline Post-Op hydration status: normal Vital Signs: Last Vital Signs Temp 36.1 C L 03/31/21 04:18 Pulse 59 L 03/31/21 04:18 Resp 21 H 03/31/21 04:18 BP 120/64 03/31/21 04:18 Pulse Ox 100 03/31/21 04:18 Pain Score (VAS): 0 I/O: Intake & Output 03/30/21 03/31/21 03/31/21 23:59 07:59 15:59 Intake Total 1600 1940 Output Total 1000 1800 Balance 600 140 Laboratory Tests 03/31/21 05:15 03/31/21 05:15 03/31/21 03/31/21 05:15 05:15 WBC 8.5 RBC 3.75 L Hgb 10.6 L Hct 33.3 L MCV 88.8 MCH 28.3 MCHC 31.8 L RDW 13.7 Plt Count 247 MPV 9.7 Sodium 137 Potassium 4.4 Chloride 105 Carbon Dioxide 28 Anion Gap 4 L BUN 6 L Creatinine 0.80 Estim Creat Clear Calc 103 Estimated GFR > 60 Glucose 83 Calcium 8.5 Total Bilirubin < 0.1 L AST 88 H ALT 161 H Alkaline Phosphatase 79 Total Protein 6.0 L Albumin 3.5 Microbiology 03/30/21 15:41 Bile Gram Stain - Final Post-procedural complaints: none Patient Feedback: Patient satisfied with anesthetic care.
[2021-03-31 12:18] VITALS: BP 102/67; PULSE 73; RESP 16; TEMP 36.1; O2SAT 100
--- NOTE | 2021-03-31 12:21 | PM.DS ---
DS: Admitting Diagnosis Admitting Diagnosis Admitting Diagnosis: Acute cholecystitis with cholelithiasis DS: Discharge Diagnosis Discharge Diagnosis (1) Cholecystitis, acute with cholelithiasis: Onset Date: ~03/2021 Code(s): K80.00 - Calculus of gallbladder with acute cholecystitis without obstruction Status: Acute Assessment and Plan: This was the main reason for the patient's admission. At surgery it appeared she did have acute cholecystitis and she did receive 1 or 2 doses of antibiotics even after her gallbladder surgery and I do not believe she needs any more. She will go home on a low-fat diet. She had uneventful postoperative course in the hospital. (2) Diverticulosis large intestine w/o perforation or abscess w/o bleeding: Code(s): K57.30 - Diverticulosis of large intestine without perforation or abscess without bleeding Status: Acute Assessment and Plan: This was not addressed during this hospitalization. She was told that she has some diverticuli. She will be due for her 1st usual colonoscopy at age 43 since she has no close family relatives who have had colon cancer at or earlier age. (3) Adrenal adenoma: Code(s): D35.00 - Benign neoplasm of unspecified adrenal gland Status: Acute Assessment and Plan: This was also not addressed during her hospitalization. Will leave up to her PCP to consider further workup. She may need to have a adrenal workup including urine metanephrines and or a MRI of the adrenal glands for further determination as to whether not concerned should be placed on this finding of a suspected adenoma in one of her adrenals. (4) Obesity (BMI 30.0-34.9): Code(s): E66.9 - Obesity, unspecified Status: Acute Assessment and Plan: Encouraged patient to lose weight and watch calories in her diet. DS: Summary Hospital Course Reason for hospitalization: acute cholecystitis with cholelithiasis Hospital Course: patient had a fairly uneventful hospital course. She had a CT scan emergency room showing inflammation of the gallbladder with gallstones. Surgery went well. She was on IV antibiotics through the time of surgery in for couple doses afterwards. We did have to aspirate fluid from her gallbladder be able to grasp it so it was felt that she probably did have acute cholecystitis. Patient progressed well with her diet and went home on a low-fat diet. She will follow up in the office in about 2 weeks. She was sent home with some pain pills to use for discomfort with her incisions this was [place] 5/325. Status at Discharge Functional status at discharge: independent ambulation Overall status at discharge: patient is not back to baseline ( Still has some abdominal pain is moving slowly.) Time Spent with Patient Time attestation: Total time spent providing and/or coordinating discharge services: 33 minutes Time spent: Greater than 30 minutes Specific discharge activities: Gradually increase walking to tolerate [place] Maintain low-fat diet for 1 week and then may begin adding back some foods that have some fat in it. Exam Const: General: cooperative, no acute distress, alert and awake Orientation/consciousness: patient oriented x3 HENMT: Mouth: Yes moist mucous membranes Other: . Eyes: Other: no scleral icterus Neck: Neck: normal visual inspection Chest: Chest palpation & inspection: normal inspection of the chest Resp: Effort & Inspection: normal respiratory effort Auscultation: clear to auscultation bilaterally Cardio: Jugular venous distension: no JVD Rate: regular rate Rhythm: regular rhythm GI: Inspection: incision ( clean and dry with surgical glue in place.) Auscultation: normal bowel sounds Rectal Exam: deferred Neuro: General: patient oriented x3 and moves all extremities Speech: normal speech Extrem: General: normal exam except as noted Psych: Mental Status: mental status grossly normal Sp
[2021-03-31 14:00] VITALS: BP 102/53; PULSE 68; RESP 16; O2SAT 100
== END 2021-03-31 15:56 | disposition home or self-care (01) ==
LOC: ANHED 12:02 → ANH2MED 13:40
PROVIDERS: Admitting Provider Surgery; Emergency Provider Emergency Medicine; PCP Nurse Practitioner Family; Visit Provider Surgery
PROC: 0FT44ZZ Resection of Gallbladder, Percutaneous Endoscopic Approach (ICD-10-PCS; CPT 47562; principal; 2021-03-30 15:00)
DX: K80.10 Calculus of gallbladder with chronic cholecystitis without obstruction (principal); E66.9 Obesity, unspecified; Z68.32 Body mass index [BMI] 32.0-32.9, adult
CPT/HCPCS: 47562; 36415; 74177; 76705; 80053; 81001; 81025; 83690; 83735; 85025; 85027; 86850; 86900; 86901; 87070; 87075; 87205; 88304; 96361; 96365; 96366; 96372; 96375; 96376; 99285; A9270; G0378; J0330; J0690; J1100; J1200; J1650; J1885; J2250; J2270; J2405; J2704; J2710; J3010; J7030; J7120; Q9966; Q9967

== ENCOUNTER 2021-04-02 12:53 | Outpatient (CLI) | payer BC, SELFPAY ==
[2021-04-02 13:24] LABS: Basophils Percent Auto 0.3 % (0.2-1.2); Eosinophils Absolute Auto 0.1 K/mm3 (0-0.3); Hematocrit 38.5 % (37.0-47.0); Hemoglobin 12.3 g/dL (12.0-15.0); Immature Granulocyte Absolute 0.02 K/mm3 (0.00-0.031); Immature Granulocyte Percent A 0.3 % (0-0.5); Lymphocytes Absolute Auto 1.66 K/mm3 (0.9-3.2); Lymphocytes Percent Auto 23.2 % (18.3-44.2); Mean Corpuscular HGB Conc 31.9 g/dl (32-36); Mean Corpuscular Hemoglobin 28.9 pg (26-34); Mean Corpuscular Volume 90.6 fl (80-100); Mean Platelet Volume 9.5 fl (7.4-10.4); Monocytes Absolute Auto 0.7 K/mm3 (0.1-0.6); Monocytes Percent Auto 9.4 % (2.6-8.5); Neutrophils Absolute Auto 4.6 K/mm3 (1.3-6.7); Neutrophils Percent Auto 64.8 % (45.5-73.1); Platelet Count Result 289 k/mm3 (150-375); Red Blood Count 4.25 M/mm3 (4.2-5.4); Red Cell Distribution Width 14.5 % (11.5-14.5); White Blood Count 7.1 K/mm3 (4.5-10.0)
[2021-04-02 15:34] LABS: Alanine Aminotransferase 165 U/L (4-35); Albumin Level 4.2 g/dL (3.5-5.1); Alkaline Phosphatase 92 U/L (38-126); Anion Gap 8 mmol/L (8-16); Aspartate Amino Transferase 75 U/L (14-36); Bilirubin,Total 0.3 mg/dL (0.2-1.3); Blood Urea Nitrogen 9 mg/dL (7-17); Carbon Dioxide 30 mmol/L (22-30); Chloride 105 mmol/L (98-107); Estimated Glomerular Filt Rate > 60; Glucose 87 mg/dL (65-105); Lipase 38 U/L (23-300); Potassium 4.8 mmol/L (3.4-5.0); Sodium 143 mmol/L (137-145)
== END 2021-04-02 12:54 | disposition home or self-care (01) ==
LOC: ANHLAB 12:54
PROVIDERS: PCP Surgery; Visit Provider Surgery
DX: R10.9 Unspecified abdominal pain (principal)
CPT/HCPCS: 36415; 80053; 83690; 85025

== ENCOUNTER 2021-04-20 10:21 | Outpatient (CLI) | payer BC, SELFPAY ==
[2021-04-20 10:52] LABS: Alanine Aminotransferase 27 U/L (4-35); Albumin Level 4.3 g/dL (3.5-5.1); Alkaline Phosphatase 90 U/L (38-126); Anion Gap 8 mmol/L (8-16); Aspartate Amino Transferase 31 U/L (14-36); Bilirubin,Total 0.2 mg/dL (0.2-1.3); Blood Urea Nitrogen 11 mg/dL (7-17); Calcium 9.5 mg/dL (8.4-10.2); Carbon Dioxide 29 mmol/L (22-30); Chloride 104 mmol/L (98-107); Estimated Glomerular Filt Rate > 60; Glucose 115 mg/dL (65-105); Potassium 4.2 mmol/L (3.4-5.0); Sodium 141 mmol/L (137-145)
== END 2021-04-20 10:22 | disposition home or self-care (01) ==
PROVIDERS: PCP Nurse Practitioner Family; Visit Provider Surgery
DX: K80.00 Calculus of gallbladder with acute cholecystitis without obstruction (principal)
CPT/HCPCS: 36415; 80053

== ENCOUNTER 2021-10-28 08:20 | Outpatient (CLI) | payer BC, SELFPAY ==
--- NOTE | ~2021-10-28 | MM_ITS ---
EXAMINATION: MM screening [facility] w [facility] HISTORY: Screening mammogram TECHNIQUE: Craniocaudal and mediolateral oblique 3-D tomosynthesis images were obtained and synthetic 2-D images were generated. CAD analysis was submitted and interpreted. COMPARISON: 09/29/2020, 09/28/2019, 09/21/2018 bilateral screening mammogram examinations BREAST PARENCHYMAL COMPOSITION: The breasts are almost entirely fatty. FINDINGS: Stable benign-appearing intramammary lymph nodes in the posterior upper outer right breast. There is no evidence of suspicious mass, calcification, or architectural distortion to suggest malig maile in either breast. There has been no suspicious interval change. IMPRESSION: 1. No mammographic evidence of malignancy. 2. Recommend routine screening mammography in one year. BI-RADS Category 2: Benign finding(s). Reviewed, dictated and finalized at location A. [employer]
== END 2021-10-28 08:21 | disposition home or self-care (01) ==
LOC: ANHIMG 08:23
PROVIDERS: PCP Nurse Practitioner Family; Visit Provider Nurse Practitioner Family
DX: Z12.31 Encounter for screening mammogram for malignant neoplasm of breast (principal)
CPT/HCPCS: 77063; 77067

== ENCOUNTER 2024-09-13 07:48 | Outpatient (CLI) | payer BC, SELFPAY ==
--- NOTE | ~2024-09-13 | MM_ITS ---
EXAMINATION: MM screening [facility] BI w kalen HISTORY: Screening mammogram TECHNIQUE: Craniocaudal and mediolateral oblique 3-D tomosynthesis images were obtained and synthetic 2-D images were generated. CAD analysis was submitted and interpreted. COMPARISON: 10/28/2021, 09/29/2020, 09/28/2019 BREAST PARENCHYMAL COMPOSITION:Not Dense. There are scattered areas of fibroglandular density. FINDINGS: No suspicious mass, calcification, or architectural distortion are identified in either rhonda ast to suggest malignancy. There has been no suspicious interval change. IMPRESSION: No mammographic evidence of malignancy. Recommend routine screening mammography in one year. BI-RADS Category 1: Negative Reviewed, dictated and finalized at location .
== END 2024-09-13 07:49 | disposition home or self-care (01) ==
PROVIDERS: PCP Nurse Practitioner Family; Visit Provider Nurse Practitioner Family
DX: Z12.31 Encounter for screening mammogram for malignant neoplasm of breast (principal)
CPT/HCPCS: 77063; 77067

== ENCOUNTER 2024-10-22 02:18 | Day surgery (SDC) | payer BC, SELFPAY ==
[2024-10-08 08:42] VITALS: BMI 31.6
[2024-10-22 12:09] VITALS: BP 113/66; PULSE 78; RESP 16; TEMP 35.9; O2SAT 100; BMI 31.0
[2024-10-22] MEDS: LACTATED RINGERS 1,000 ML 150 ML IV CONT (12:22)
--- NOTE | 2024-10-22 12:26 | P.PNAN_ITS ---
Anes - Initial Pre Proc Eval Procedure: Operation Date: 10/22/24 13:30 Proposed Procedures p Screening Colonoscopy - Adrian Correa MD Date/Time: 10/22/24 12:26 Surgeon: Adrian Correa MD Pre Op Diagnosis: Neoplasm Screening Patient Data Age: 44 Gender: F Height: 1.78 m Weight: 98.2 kg Last Vital Signs Temp 96.6 F L 10/22/24 12:09 Pulse 78 10/22/24 12:09 Resp 16 10/22/24 12:09 BP 113/66 10/22/24 12:09 Pulse Ox 100 10/22/24 12:09 O2 Del Method Room Air 10/22/24 12:09 Allergies Allergy/AdvReac Type Severity Reaction Status Date / Time METOCLOPRAMIDE HCL Allergy Severe Swelling Uncoded 10/22/24 12:08 of Lip/Tongue/Throat PROCHLORPERAZINE EDISYLATE Allergy Severe Swelling Uncoded 10/22/24 12:08 of Lip/Tongue/Throat PROMETHAZINE HCL Allergy Severe Swelling Uncoded 10/22/24 12:08 of Lip/Tongue/Throat Home Medications Medication Instructions Recorded Confirmed Type bupropion HCl 150 mg 24 hr tablet, 150 mg PO DAILY 03/29/21 10/22/24 History extended release ergocalciferol (vitamin D2) 50 mcg 250 mcg PO DAILY 03/29/21 10/22/24 History (2,000 unit) tablet levothyroxine 175 mcg tablet 175 mcg PO DAILY 03/29/21 10/22/24 History lorazepam 1 mg tablet 1 mg PO HS PRN insomnia 03/29/21 10/22/24 History omeprazole 40 mg capsule,delayed 40 mg PO DAILY 03/29/21 10/22/24 History release sertraline 100 mg tablet 100 mg PO DAILY 03/29/21 10/22/24 History vitamin B complex (B 1 tablet PO DAILY 03/29/21 10/22/24 History Complex-Vitamin B12 tablet) zolpidem 5 mg tablet 5 mg PO HS PRN insomnia 03/29/21 10/22/24 History Patient hx anesthesia problems: none Family hx anesthesia problems: none Results Review: All pre-operative results and documents have been reviewed as part of the pre- operative evaluation. [facility] Past Medical History Medical History Anxiety Depression Diverticulitis Diverticulosis large intestine w/o perforation or abscess w/o bleeding GERD (gastroesophageal reflux disease) Hypothyroidism Obesity (BMI 30.0-34.9) PONV (postoperative nausea and vomiting) Surgical History Surgical History History of Hx laparoscopic cholecystectomy Family History Family History Father Hypertension Social History Social History Smoking status: Never smoker Alcohol intake: current Drinks per week: 2 Substance use: never Substance use type: does not use Living arrangements: with family Gender identity (if verbalized by the patient): Female Spiritual care concerns: No Anes - Eval Final PreProcedure Day of Procedure 10/22/24 12:26 Patient weight: obese Heart: regular rate and rhythm Lungs: clear to auscultation Airway: Mallampati scale class II Neurological: alert and oriented Last oral intake: >/= 8 hours ASA classification: II Emergent: no Anesthetic plan: proceed Anesthesia type and monitoring: general GIVS and standard monitoring Results Review: All pre-operative results and documents have been reviewed as part of the pre- operative evaluation. Informed Consent: The patient's anesthetic plan and its attendant risks and benefits were discussed with the patient/family/POA. Questions were solicited and answers provided to the satisfaction of the patient/family/POA.
--- NOTE | 2024-10-22 12:28 | PM.HPGS ---
History of Present Illness History of Present Illness Consent: Risks, benefits, and alternatives have been discussed and questions answered. Patient agrees to proceed with procedure. Chief complaint: Neoplasm Screening Narrative: Saida Justin is a 44 year old female here for first screening colonoscopy Review of Systems Review of Systems: All systems reviewed & are unremarkable except as noted in HPI and below PMFSH Past Medical History Medical History (Updated 10/22/24 @ 12:32 by Adrian Correa MD) Anxiety Colon cancer screening Depression Diverticulitis Diverticulosis large intestine w/o perforation or abscess w/o bleeding GERD (gastroesophageal reflux disease) Hypothyroidism Obesity (BMI 30.0-34.9) PONV (postoperative nausea and vomiting) Surgical History Surgical History History of Hx laparoscopic cholecystectomy Family History Family History Father Hypertension Social History Social History Smoking status: Never smoker Alcohol intake: current Drinks per week: 2 Substance use: never Substance use type: does not use Living arrangements: with family Gender identity (if verbalized by the patient): Female Spiritual care concerns: No Meds Home Medications and Allergies Home Medications Medication Instructions Recorded Confirmed Type bupropion HCl 150 mg 24 hr tablet, 150 mg PO DAILY 03/29/21 10/22/24 History extended release ergocalciferol (vitamin D2) 50 mcg 250 mcg PO DAILY 03/29/21 10/22/24 History (2,000 unit) tablet levothyroxine 175 mcg tablet 175 mcg PO DAILY 03/29/21 10/22/24 History lorazepam 1 mg tablet 1 mg PO HS PRN insomnia 03/29/21 10/22/24 History omeprazole 40 mg capsule,delayed 40 mg PO DAILY 03/29/21 10/22/24 History release sertraline 100 mg tablet 100 mg PO DAILY 03/29/21 10/22/24 History vitamin B complex (B 1 tablet PO DAILY 03/29/21 10/22/24 History Complex-Vitamin B12 tablet) zolpidem 5 mg tablet 5 mg PO HS PRN insomnia 03/29/21 10/22/24 History Allergies Allergy/AdvReac Type Severity Reaction Status Date / Time METOCLOPRAMIDE HCL Allergy Severe Swelling Uncoded 10/22/24 12:08 of Lip/Tongue/Throat PROCHLORPERAZINE EDISYLATE Allergy Severe Swelling Uncoded 10/22/24 12:08 of Lip/Tongue/Throat PROMETHAZINE HCL Allergy Severe Swelling Uncoded 10/22/24 12:08 of Lip/Tongue/Throat Vital Signs Vital Signs - 24 hr 10/22/24 12:09 Temperature 96.6 F L Pulse Rate 78 Respiratory Rate 16 Blood Pressure 113/66 Pulse Oximetry 100 Oxygen Delivery Room Air Exam Const: General: comfortable and no acute distress HENMT: Face/Nose/Sinus: Normal nares present Eyes: General: appearance normal, both eyes and all related structures Neck: Neck: no JVD Resp: Auscultation: clear to auscultation bilaterally Cardio: Rate: regular rate Rhythm: regular rhythm GI: Inspection: non-distended GI Palp: Yes Soft to palpation Skin: General skin exam: normal color Neuro: General: gait normal Speech: normal speech Extrem: General: normal to inspection Psych: Mental Status: mental status grossly normal Assessment and Plan Assessment and plan (1) Colon cancer screening: Code(s): Z12.11 - Encounter for screening for malignant neoplasm of colon Status: Acute Assessment and Plan: colonoscopy
[2024-10-22 12:49] VITALS: BP 96/46; PULSE 65; RESP 19; O2SAT 100
[2024-10-22 12:59] VITALS: BP 111/68; PULSE 65; RESP 20; O2SAT 99
[2024-10-22 13:09] VITALS: BP 114/65; PULSE 63; RESP 18; O2SAT 100
== END 2024-10-22 13:19 | disposition home or self-care (01) ==
PROVIDERS: PCP Nurse Practitioner Family; Visit Provider Internal Medicine Gastroenterology
PROC: 0DJD8ZZ Inspection of Lower Intestinal Tract, Via Natural or Artificial Opening Endoscopic (ICD-10-PCS; CPT 45378; principal; 2024-10-22 13:30)
DX: Z12.11 Encounter for screening for malignant neoplasm of colon (principal); K64.8 Other hemorrhoids; E03.9 Hypothyroidism, unspecified; K21.9 Gastro-esophageal reflux disease without esophagitis; F41.9 Anxiety disorder, unspecified; F32.A Depression, unspecified; E66.9 Obesity, unspecified; Z68.31 Body mass index [BMI] 31.0-31.9, adult; Z98.890 Other specified postprocedural states; Z90.49 Acquired absence of other specified parts of digestive tract; Z87.19 Personal history of other diseases of the digestive system
CPT/HCPCS: 45378; J2003; J2704; J7120